=== PATIENT | male | born 1970 | race Caucasian/White ===

== ENCOUNTER 2019-06-19 15:08 | Emergency (ER) | payer SELFPAY ==
[~2019-06-19] VITALS: Ht 167.6 cm; Wt 72.7 kg
[2019-06-19 15:09] VITALS: BP 176/86
== END 2019-06-19 16:17 | disposition left against medical advice (07) ==
LOC: M ED 15:08
DX: Z53.21 Procedure and treatment not carried out due to patient leaving prior to being seen by health care provider (principal)